=== PATIENT | female | born 1975 ===

== ENCOUNTER 2021-05-07 11:51 | Outpatient (CLI) | payer OTHER | END 2021-05-07 13:26 | disposition home or self-care (01) | LOC: OFIC 805 11:51 | PROVIDERS: ATTEND Otolaryngology | DX: H92.02 Otalgia, left ear (principal); T16.2XXA Foreign body in left ear, initial encounter; H60.8X2 Other otitis externa, left ear; H61.22 Impacted cerumen, left ear ==

== ENCOUNTER 2023-06-20 11:17 | Outpatient (CLI) | payer OTHER | END 2023-06-20 11:19 | disposition home or self-care (01) | LOC: SONOGRAMA 11:17 | PROVIDERS: ATTEND Pathology Anatomic Pathology & Clinical Pathology | DX: D34 Benign neoplasm of thyroid gland (principal); E04.9 Nontoxic goiter, unspecified ==